=== PATIENT | female | born 1965 | race Caucasian/White ===

== ENCOUNTER 2018-02-13 14:45 | Emergency (ER) | payer OTHER ==
[~2018-02-13] VITALS: Ht 167.6 cm; Wt 97.5 kg
[2018-02-13 15:37] LABS: ABSOLUTE BASOPHIL COUNT 0.1 /CUMM (0.0-0.2); ABSOLUTE EOSINOPHIL COUNT 0.1 /CUMM (0.0-0.7); ABSOLUTE GRANULOCYTE CT 6.8 /CUMM (1.4-6.5); ABSOLUTE LYMPH COUNT 1.9 /CUMM (1.2-3.4); ABSOLUTE MONOCYTE COUNT 0.6 /CUMM (0.10-0.60); BASOPHIL % 0.9 % (0.0-2.0); EOSINOPHIL % 0.8 % (0-5); GRANULOCYTE % 71.9 % (42.2-75.2); HEMATOCRIT 42.1 % (37-47); MEAN CORPUSCULAR HGB CONC 33.4 G/DL (33.0-37.0); MEAN CORPUSCULAR VOLUME 84.1 FL (81.0-99.0); MEAN PLATELET VOLUME 8.3 FL (7.4-10.4); PLATELET COUNT 365 /CUMM (130-400); RBC DISTRIBUTION WIDTH 13.5 % (11.5-14.5); RED BLOOD CELL CT 5.01 /CUMM (4.20-5.40); WHITE BLOOD CELL COUNT 9.4 /CUMM (4.8-10.8)
[2018-02-13] MEDS ORDERED: MELOXICAM7.5 M1 PO (16:20)
[2018-02-13] MEDS ORDERED: NEXIUM40 M1 PO (16:20)
--- NOTE | 2018-02-13 16:20 | ED GI/GU/ABDOMINAL COMPLAINT ---
History of Present Illness General Chief Complaint: Abdominal Pain/Flank Pain Stated Complaint: ABD PAIN Source: patient Exam Limitations: no limitations Vital Signs & Intake/Output Vital Signs & Intake/Output Vital Signs Date Time Temp Pulse Resp B/P B/P Pulse O2 O2 Flow FiO2 Mean Ox Delivery Rate 02/13 1657 Room Air 02/13 1646 98.4 86 18 133/85 94 02/13 1509 98.0 88 18 140/88 96 Room Air Allergies Coded Allergies: No Known Allergies (02/13/18) Reconcile Medications Ciprofloxacin HCl (Cipro) 500 MG TABLET 1 TAB PO BID DIVERTICULITIS Cyanocobalamin (Vitamin B-12) (Unknown Strength) TABLET (Unknown Dose) PO DAILY SUPPLEMENT (Reported) Esomeprazole (Nexium) 40 MG CAPSULE.DR 1 CAP PO DAILY GI (Reported) Fluticasone Propionate 50 MCG/ACTUATION SPRAY.SUSP 2 SPRAY NASB AD PRN ALLERGIES (Reported) Meloxicam 7.5 MG TABLET 1 TAB PO DAILY PAIN/INFLAMMATION (Reported) Metronidazole (Flagyl) 500 MG TABLET 1 TAB PO Q6 DIVERTICULITIS Multivitamin (Multi-Vitamin Daily) 1 EACH TABLET 1 TAB PO DAILY SUPPLEMENT ( Reported) Propranolol HCl 40 MG TABLET 1 TAB PO DAILY MIGRAINES (Reported) Triage Note: 52F SIB WALK IN FOR LLQ SINCE THURSDAY MORNING. DENIES N/V/D OR BACK PAIN. DENIES DYSURIA OR HEMATURIA. DENIES FEVERS. DESCRIBES PAIN DULL AND WORSE W MOVEMENT AND PALPATION Triage Nurses Notes Reviewed? yes ? N Is pt currently ? No HPI: Patient presents for evaluation of a left sided abdominal pain that began (48 hours ago). Onset was gradual and the pain has been an intermittent sharp pain gets worse with walking deep breath and certain movements. Patient denies any known injury. She likewise denies any associated rashes dysuria or prior episodes. She was evaluated in a walk-in clinic earlier today and was asked to go to the emergency department for a CAT scan (they began treating her for a urinary tract infection with antibiotics). Patient denies alcohol or drug or tobacco use. She also denies family history of gastrointestinal disease. The pain more or less resolves when sitting/resting. Past History Travel History Traveled to [place] past 21 day No Medical History Any Pertinent Medical History? see below for history Surgical History Surgical History: non-contributory Psychosocial History What is your primary language Kuwaiti Tobacco Use: Never used ETOH Use: denies use Illicit Drug Use: denies illicit drug use Family History Hx Contributory? No Review of Systems Review of Systems Constitutional: Reports: no symptoms. EENTM: Reports: no symptoms. Respiratory: Reports: no symptoms. Cardiovascular: Reports: no symptoms. GI: Reports: see HPI. Genitourinary: Reports: no symptoms. Musculoskeletal: Reports: no symptoms. Skin: Reports: no symptoms. Neurological/Psychological: Reports: no symptoms. Hematologic/Endocrine: Reports: no symptoms. Immunologic/Allergic: Reports: no symptoms. All Other Systems: Reviewed and Negative Physical Exam Physical Exam Gastrointestinal: SEE BELOW Comments: Gen.: Well-nourished, well-developed, no acute respiratory distress. Head: Normocephalic, atraumatic. Eyes: Normal inspection bilaterally Ears: Normal inspection bilaterally Nose: Normal inspection Throat/mouth : Moist mucosa Neck: Supple, full range of motion, no goiter Heart: Regular rate and rhythm, no murmurs rubs or gallops Lungs: Clear to auscultation bilaterally with normal air entry (pain worsens with deep inspiration) Chest: Nontender Back: Normal range of motion Abdomen: Soft, tenderness of the left mid to left lower quadrant without rebound or guarding, nondistended, normal bowel sounds Extremities: Normal range of motion grossly, equal radial pulses, no cyanosis clubbing or edema Neurologic: Cranial nerves grossly intact, speech is clear Skin: warm and dry, no ecchymoses soft tissue swelling or rashes in the area of pain Psychiatric: Calm, cooperative, no apparent delusions or hallucinations Core Measures ACS in differential dx? No Sepsis Present: No Sepsis Focused Exam Completed? No Progress Differential Diagnosis: biliary colic, bowel obstruction, diverticulitis, gastritis, hepatitis, inflamm bowel dis, pancreatitis, peptic ulcer, PUD/GERD Plan of Care: Orders Procedure Date/time Status URINALYSIS 02/13 1509 Complete LIPASE 02/13 1509 Complete LACTIC ACID 02/13 1509 Complete HEPATIC FUNCTION PANEL 02/13 1509 Complete CBC WITHOUT DIFFERENTIAL 02/13 1509 Complete BASIC METABOLIC PANEL 02/13 1509 Complete Laboratory Tests 02/13/18 1809: Lactic Acid Cancelled 02/13/18 1525: Anion Gap 11, Estimated GFR > 60, BUN/Creatinine Ratio 17.5, Glucose 89, Lactic Acid 0.7, Calcium 9.6, Total Bilirubin 0.7, Direct Bilirubin 0.3, AST 23, ALT 28 , Alkaline Phosphatase 121, Total Protein 8.0, Albumin 4.4, Lipase 40, CBC w Diff NO MAN DIFF REQ, RBC 5.01, MCV 84.1, MCH 28.0, MCHC 33.4, RDW 13.5, MPV 8.3 , Gran % 71.9, Lymphocytes % 19.6 L, Monocytes % 6.8, Eosinophils % 0.8, Basophils % 0.9, Absolute Granulocytes 6.8 H, Absolute Lymphocytes 1.9, Absolute Monocytes 0.6, Absolute Eosinophils 0.1, Absolute Basophils 0.1 02/13/18 1505: Urine Color YEL, Urine Clarity CLEAR, Urine pH 6.0, Ur Specific Shipman 1.010, Urine Protein NEG, Urine Ketones 15 H, Urine Nitrite NEG, Urine Bilirubin NEG, Urine Urobilinogen 0.2, Ur Leukocyte Esterase MOD H, Ur Microscopic SEDIMENT EXAMINED, Urine RBC 5-10 H, Urine WBC 3-5 H, Ur Epithelial Cells MANY H, Urine Bacteria MOD H, Urine Hemoglobin NEG, Urine Glucose NEG Diagnostic Imaging: Discussed w/RAD: CT Scan. Radiology Impression: PATIENT: MARIA DE JESUS PAGAN PRESENT AGE: 52 PATIENT ACCOUNT NO: [id number] : 64 LOCATION: [facility] ORDERING PHYSICIAN: Marek Jamil MD SERVICE DATE: 02/13/18 EXAM TYPE: CAT - CT ABD & PELVIS W/O IV CONTRAS EXAMINATION: CT ABDOMEN AND PELVIS WITHOUT CONTRAST CLINICAL INFORMATION: Left-sided abdominal pain. COMPARISON: None TECHNIQUE: Multidetector volumetric imaging was performed from the superior aspect of the liver through the pubic symphysis. Sagittal and coronal reformatted images were obtained on the technologist's workstation. DLP: 1254.84 mGy-cm FINDINGS: LUNG BASES: The visualized lung bases are unremarkable. Atelectasis is noted at the left lung base. LIVER, GALLBLADDER, AND BILIARY TREE : The liver is normal in size, shape, and attenuation. No focal hepatic lesion or biliary ductal dilatation is present. The gallbladder is unremarkable with no evidence of radiopaque gallstones, gallbladder wall thickening, or obvious pericholecystic inflammatory changes. PANCREAS: Unremarkable. SPLEEN: Unremarkable. A small splenule is seen. ADRENAL GLANDS: Unremarkable. KIDNEYS AND URETERS: The kidneys are normal in size, shape, and attenuation. No hydronephrosis, hydroureter, or calculi seen. No perinephric stranding. BLADDER: Unremarkable. GASTROINTESTINAL TRACT: There is inflammatory change present in the proximal left descending colon with thickening of the fascia. No free air is seen. No ascites is present. No abnormal fluid collections are seen. Sigmoid diverticulosis is present with scattered tics elsewhere in the colon. The above mentioned findings would be consistent with a focal area of inflammation from diverticulitis in the descending colon. Small bowel is unremarkable including terminal ileum, appears normal. The appendix is not seen with certainty. ABDOMINAL WALL: No significant hernia is appreciated. A small periumbilical hernia is seen which contains fat. LYMPH NODES: Normal. VASCULAR: Unremarkable. PELVIC VISCERA: An anteverted uterus is present. An abnormal adnexal mass is not seen. OSSEOUS STRUCTURES: Unremarkable. IMPRESSION: Findings in proximal descending colon consistent with acute uncomplicated diverticulitis with inflammatory changes in the pericolonic fat and some thickening of the peritoneum. An associated abscess or fluid collection is not seen. DICTATED BY: Jr Zuñiga MD DATE/TIME DICTATED:02/13/181804 SHAKE LOADER:JAROCHO DATE/TIME TRANSCRIBED:02/13/181804 CONFIDENTIAL, DO NOT COPY WITHOUT APPROPRIATE AUTHORIZATION. <Electronically signed in Other Vendor System> SIGNED BY: Jr Zuñiga MD 02/13/18 1831 Initial ED EKG: none Departure Departure Disposition: HOME OR SELF CARE Condition: Stable Clinical Impression Primary Impression: Diverticulitis Referrals: Devang Márquez MD (PCP/Family) Additional Instructions: Cipro and Flagyl as prescribed. [id number] pain medication if needed. Follow-up with your primary care physician in 48-72 hours if not improving. Return if any concerns or sudden worsening. Please note that there might be incidental findings in your evaluation that are unrelated to the current emergency department visit. Please notify your primary care doctor about this emergency department visit in order to obtain and review all of the testing performed so that these incidental findings can be monitored as needed. If you had an x-ray performed, please understand that some fractures or other findings may not be seen on the initial set of x-rays. If your symptoms persist you might need a repeat set of x-rays to check for such a fracture. If you had a laceration evaluated, please understand that foreign bodies such as glass or wood may not be visible to the naked eye or on plain x-rays. If the wound becomes red, swollen, increasingly more painful or if there is any drainage from the wound, please have it reevaluated by a physician for the possibility of a retained foreign body. If you're unable to follow up as outlined in the discharge instructions please return to the emergency department. Thank you for choosing the [facility] Emergency Department for your care. It was a pleasure to serve you today. Marek Jamil M.D. [facility] Departure Forms: Customer Survey General Discharge Information Prescriptions: Current Visit Scripts Ciprofloxacin HCl (Cipro) 1 TAB PO BID #14 TAB Metronidazole (Flagyl) 1 TAB PO Q6 #28 TAB
[2018-02-13] MEDS ORDERED: FLUTICASONE PRO16 GM NASB (16:21)
[2018-02-13] MEDS ORDERED: PROPRANOLOL HCL40 M1 PO (16:21)
[2018-02-13] MEDS ORDERED: MULTI-VITAMIN1 EACH PO (16:22)
[2018-02-13] MEDS ORDERED: VITAMIN B-121000 MC3 PO (16:22)
--- NOTE | 2018-02-13 18:31 | CT SCAN REPORT ---
EXAMINATION: CT ABDOMEN AND PELVIS WITHOUT CONTRAST CLINICAL INFORMATION: Left-sided abdominal pain. COMPARISON: None TECHNIQUE: Multidetector volumetric imaging was performed from the superior aspect of the liver through the pubic symphysis. Sagittal and coronal reformatted images were obtained on the technologist's workstation. DLP: 1254.84 mGy-cm FINDINGS: LUNG BASES: The visualized lung bases are unremarkable. Atelectasis is noted at the left lung base. LIVER, GALLBLADDER, AND BILIARY TREE: The liver is normal in size, shape, and attenuation. No focal hepatic lesion or biliary ductal dilatation is present. The gallbladder is unremarkable with no evidence of radiopaque gallstones, gallbladder wall thickening, or obvious pericholecystic inflammatory changes. PANCREAS: Unremarkable. SPLEEN: Unremarkable. A small splenule is seen. ADRENAL GLANDS: Unremarkable. KIDNEYS AND URETERS: The kidneys are normal in size, shape, and attenuation. No hydronephrosis, hydroureter, or calculi seen. No perinephric stranding. BLADDER: Unremarkable. GASTROINTESTINAL TRACT: There is inflammatory change present in the proximal left descending colon with thickening of the fascia. No free air is seen. No ascites is present. No abnormal fluid collections are seen. Sigmoid diverticulosis is present with scattered tics elsewhere in the colon. The above mentioned findings would be consistent with a focal area of inflammation from diverticulitis in the descending colon. Small bowel is unremarkable including terminal ileum, appears normal. The appendix is not seen with certainty. ABDOMINAL WALL: No significant hernia is appreciated. A small periumbilical hernia is seen which contains fat. LYMPH NODES: Normal. VASCULAR: Unremarkable. PELVIC VISCERA: An anteverted uterus is present. An abnormal adnexal mass is not seen. OSSEOUS STRUCTURES: Unremarkable. IMPRESSION: Findings in proximal descending colon consistent with acute uncomplicated diverticulitis with inflammatory changes in the pericolonic fat and some thickening of the peritoneum. An associated abscess or fluid collection is not seen.
[2018-02-13 18:45] VITALS: BP 136/83
[2018-02-13] MEDS ORDERED: FLAGYL500 MG PO (19:19)
[2018-02-13] MEDS ORDERED: CIPRO500 M1 PO (19:19)
== END 2018-02-13 19:28 ==
LOC: ERH 14:45
PROVIDERS: Physician Assistant
DX: K57.92 Diverticulitis of intestine, part unspecified, without perforation or abscess without bleeding (principal)
CPT/HCPCS: 74176; 81001